=== PATIENT | male | born 1950 | race Caucasian/White ===

== ENCOUNTER 2018-01-21 17:24 | Emergency (ER) | payer MEDICAID ==
[~2018-01-21] VITALS: Ht 177.8 cm; Wt 78.0 kg
[2018-01-21] MEDS ORDERED: METF500T5 PO ×2 (17:38→17:40)
[2018-01-21] MEDS ORDERED: SERT100T PO (17:40)
[2018-01-21 22:44] VITALS: BP 122/64
== END 2018-01-21 23:16 | disposition home or self-care (01) ==
LOC: ED 23:00
DX: F10.120 Alcohol abuse with intoxication, uncomplicated (principal)
CPT/HCPCS: 99283

== ENCOUNTER 2018-01-25 16:47 | Emergency (ER) | payer MEDICARE, MEDICAID ==
[~2018-01-25] VITALS: Ht 167.6 cm; Wt 70.0 kg
[~2018-01-25 16:47] MED LIST: METF500T5 PO; SERT100T PO
[2018-01-25 18:02] LABS: BASOPHILS # (AUTO) 0.04 x10^3/uL (0-0.1); BASOPHILS % (AUTO) 0 % (0-1); EOSINOPHILS # (AUTO) 0.23 x10^3/uL (0-0.4); EOSINOPHILS % (AUTO) 3 % (1-7); LYMPHOCYTES # (AUTO) 1.96 x10^3/uL (1-3.4); LYMPHOCYTES % (AUTO) 21 % (22-44); MD NO; MEAN CORPUSCULAR HEMOGLOBIN 27.4 pg (27.5-34.5); MEAN CORPUSCULAR HGB CONC 33.3 g/dL (33.2-36.2); MEAN CORPUSCULAR VOLUME 82.3 fL (81-97); MEAN PLATELET VOLUME 10.1 fL (7.4-10.4); MONOCYTES # (AUTO) 0.43 x10^3/uL (0.2-0.8); MONOCYTES % (AUTO) 5 % (2-9); NEUTROPHILS # (AUTO) 6.54 x10^3/uL (1.8-6.8); NEUTROPHILS % (AUTO) 71 % (42-75); PLATELET COUNT 246 x10^3/uL (130-400); RED BLOOD COUNT 4.36 x10^6/uL (4.38-5.82); RED CELL DISTRIBUTION WIDTH 17.6 % (9.4-14.8)
[2018-01-25 18:08] LABS: ALANINE AMINOTRANSFERASE 35 U/L (12-78); ALBUMIN 3.7 g/dL (3.4-5.0); ANION GAP 12 mmol/L (5-15); CALCIUM 8.6 mg/dL (8.5-10.1); CHLORIDE 115 mmol/L (98-107); CREATININE 2.07 mg/dL (0.7-1.3)
[2018-01-25 18:10] LABS: ALKALINE PHOSPHATASE 100 U/L (45-117); BILIRUBIN,TOTAL 0.3 mg/dL (0.2-1.0); INTERNATIONAL NORMALIZED RATIO 1.02 (0.93-1.1); PROTHROMBIN TIME 10.6 Seconds (9.6-11.5); TOTAL PROTEIN 7.8 g/dL (6.4-8.2)
[2018-01-25 18:13] LABS: TROPONIN I < 0.015 ng/mL (0.000-0.045)
[2018-01-25 19:51] VITALS: BP 157/83
== END 2018-01-25 20:17 | disposition home or self-care (01) ==
LOC: ED 20:11
DX: N28.9 Disorder of kidney and ureter, unspecified (principal); F10.220 Alcohol dependence with intoxication, uncomplicated; E11.10 Type 2 diabetes mellitus with ketoacidosis without coma
CPT/HCPCS: 36415; 71045; 80053; 83605; 83690; 84484; 85025; 85610; 93005; 99285

== ENCOUNTER 2018-03-10 20:26 | Emergency (ER) | payer MEDICAID ==
[~2018-03-10] VITALS: Ht 177.8 cm; Wt 80.0 kg
[~2018-03-10 20:26] MED LIST changes: +METF500T17 PO; -METF500T5 PO
[2018-03-10 23:48] VITALS: BP 142/88
== END 2018-03-11 00:37 | disposition home or self-care (01) ==
LOC: ED 22:39
DX: F10.220 Alcohol dependence with intoxication, uncomplicated (principal); E11.9 Type 2 diabetes mellitus without complications
CPT/HCPCS: 99283

== ENCOUNTER 2018-05-02 16:19 | Emergency (ER) | payer MEDICAID, MEDICARE ==
[~2018-05-02] VITALS: Ht 177.8 cm; Wt 90.0 kg
[2018-05-02 16:59] LABS: BASOPHILS # (AUTO) 0.09 x10^3/uL (0-0.1); BASOPHILS % (AUTO) 1 % (0-1); EOSINOPHILS # (AUTO) 0.31 x10^3/uL (0-0.4); EOSINOPHILS % (AUTO) 2 % (1-7); LYMPHOCYTES # (AUTO) 2.88 x10^3/uL (1-3.4); LYMPHOCYTES % (AUTO) 22 % (22-44); MD NO; MEAN CORPUSCULAR HEMOGLOBIN 28.2 pg (27.5-34.5); MEAN CORPUSCULAR HGB CONC 33.6 g/dL (33.2-36.2); MEAN CORPUSCULAR VOLUME 83.8 fL (81-97); MEAN PLATELET VOLUME 10.4 fL (7.4-10.4); MONOCYTES # (AUTO) 0.88 x10^3/uL (0.2-0.8); MONOCYTES % (AUTO) 7 % (2-9); NEUTROPHILS # (AUTO) 9.21 x10^3/uL (1.8-6.8); NEUTROPHILS % (AUTO) 69 % (42-75); PLATELET COUNT 233 x10^3/uL (130-400); RED BLOOD COUNT 3.98 x10^6/uL (4.38-5.82); RED CELL DISTRIBUTION WIDTH 14.9 % (9.4-14.8)
[2018-05-02] MEDS ORDERED: SODIUM CHLORIDE FLUSH 10ML SYR IVF ONE (17:00)
[2018-05-02 17:12] LABS: ALANINE AMINOTRANSFERASE 36 U/L (12-78); ALBUMIN 3.6 g/dL (3.4-5.0); ANION GAP 13 mmol/L (5-15); CALCIUM 8.1 mg/dL (8.5-10.1); CHLORIDE 106 mmol/L (98-107); CREATININE 1.52 mg/dL (0.7-1.3)
[2018-05-02 17:14] LABS: ALKALINE PHOSPHATASE 110 U/L (45-117); BILIRUBIN,TOTAL 0.3 mg/dL (0.2-1.0); TOTAL PROTEIN 7.8 g/dL (6.4-8.2)
[2018-05-02] MEDS ORDERED: ONDANSETRON 2MG/ML, 2ML ONE (17:28)
[2018-05-02] MEDS ORDERED: ONDANSETRON 2MG/ML, 2ML IVPush ONE (17:30)
[2018-05-02] MEDS ORDERED: MAALOX/HYOSCYAMINE/LIDOCAINE 45 ML BTL PO ONE (19:00)
[2018-05-02] MEDS ORDERED: MAALOX/HYOSCYAMINE/LIDOCAINE 45 ML BTL ONE (19:12)
[2018-05-02 20:22] VITALS: BP 122/75
== END 2018-05-02 20:24 | disposition home or self-care (01) ==
LOC: ED 18:47
DX: F10.220 Alcohol dependence with intoxication, uncomplicated (principal); K29.20 Alcoholic gastritis without bleeding; Z13.9 Encounter for screening, unspecified; E11.9 Type 2 diabetes mellitus without complications
CPT/HCPCS: 36415; 80053; 80307; 83690; 85025; 96374; 99284; J2405

== ENCOUNTER 2018-07-24 23:33 | Emergency (ER) | payer MEDICAID, MEDICARE ==
[~2018-07-24] VITALS: Ht 177.8 cm; Wt 78.0 kg
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
[2018-07-25] MEDS ORDERED: IBUPROFEN 600 MG TABLET PO ONE
[2018-07-25] MEDS ORDERED: IBUPROFEN 200 MG TABLET ONE (00:06)
[2018-07-25] MEDS ORDERED: IBUPROFEN 600 MG TABLET ONE (00:09)
--- NOTE | 2018-07-25 00:10 | NUR ---
pt medicated per mar
[2018-07-25] MEDS ORDERED: GABA600T PO (00:14)
[2018-07-25] MEDS ORDERED: blood pressure (00:14)
--- NOTE | 2018-07-25 01:41 | NUR ---
PT RESTING WITH EYES CLOSED, NADN, EQUAL CHEST RISE/FALL OBSERVED, CALL LIGHT WITHIN REACH.
--- NOTE | 2018-07-25 01:41 | NUR ---
LATE ENTRY 0116- ATTEMPTED TO CALL [facility]ARBY INTERMEDIATE/FACILITIES WHERE PT WAS PICKED UP BY [facility], NOTIFIED THAT PT DOES NOT RESIDE AT ANY OF THESE FACILITIES. [facility] CALLED REGARDING MISSING PERSONS, NOTIFIED THAT THERE ARE NO REPORTS OF MISSING PERSON RELATED TO PT, ERP UPDATED.
--- NOTE | 2018-07-25 02:36 | NUR ---
PT RESTING CALMLY, DENIES NEEDS, NAD, CALL LIGHT WITHIN REACH.
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
--- NOTE | 2018-07-25 04:20 | NUR ---
PT RESTING CALMLY, PROVIDED PT WITH WARM BLANKET, NADN, CALL LIGHT WITHIN REACH
--- NOTE | 2018-07-25 05:43 | NUR ---
PT RESTING WITH EYES CLOSED, NADN, EQUAL CHEST RISE/FALL NOTED, CALL LIGHT WITHIN REACH
--- NOTE | 2018-07-25 07:07 | NUR ---
Recieved bedside report from JONAH Das. All questions answered. Assuming care of pt. Pt sleeping on gurney connected to all monitors. All safety measures in place. Pt has unlabored respirations equal bilaterally. Skin is pink, warm, and dry.
--- NOTE | 2018-07-25 07:08 | NUR ---
REPORT GIVEN TO JONAH SCOTT
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
--- NOTE | 2018-07-25 09:35 | NUR ---
Pt ambulates to restroom with personal cane stand by assistance. Pt provided breakfast tray and is appreciative. Pt states, "The house I live at is on [address] [facility] and it is down near a smoke shop and the [address]. It's a long term."
--- NOTE | 2018-07-25 10:13 | NUR ---
BS REPORT FROM SONIA MCKENZIE, ASSUME CARE OF PT AT THIS TIME. PT RESTING ON FREDRICK ANNE, AWAITING SW.
[2018-07-25 12:35] VITALS: BP 131/80
== END 2018-07-25 12:37 | disposition home or self-care (01) ==
LOC: ED 23:55
DX: S80.212A Abrasion, left knee, initial encounter (principal); S80.211A Abrasion, right knee, initial encounter; R53.1 Weakness; H54.8 Legal blindness, as defined in USA; E11.9 Type 2 diabetes mellitus without complications; F41.1 Generalized anxiety disorder; Z72.9 Problem related to lifestyle, unspecified; Z86.73 Personal history of transient ischemic attack (TIA), and cerebral infarction without residual deficits; W18.30XA Fall on same level, unspecified, initial encounter; Y93.89 Activity, other specified; Y92.89 Other specified places as the place of occurrence of the external cause; Y99.8 Other external cause status
CPT/HCPCS: 93005; 99283

== ENCOUNTER 2018-12-03 16:12 | Emergency (ER) | payer MEDICARE, MEDICAID ==
[~2018-12-03] VITALS: Ht 177.8 cm; Wt 86.0 kg
[~2018-12-03 16:12] MED LIST changes: +GABA600T PO; +blood pressure
--- NOTE | 2018-12-03 16:24 | NUR ---
Pt BIB EMS from [place] for trip and fall. Pt states he drank 2 beers today and fell walking home. Denies LOC, neck pain. Pt has abrasions to R forehead. BG by ems 131.
--- NOTE | 2018-12-03 16:47 | NUR ---
REPORT FROM JONAH PEREIRA. ASSISTED PATIENT TO BATHROOM, STAND-BY ASSIST. SLOW STEADY GAIT WITH CANE. PATIENT BACK TO BED, AWAITING CT, FREDRICKN.
--- NOTE | 2018-12-03 16:59 | NUR ---
PATIENT IN CT.
--- NOTE | 2018-12-03 17:34 | NUR ---
RESULTS BACK, CHART UP FOR RECHECK.
--- NOTE | 2018-12-03 18:02 | NUR ---
PATIENT AMB WITH SLOW STEADY GAIT TO BATHROOM WITH CANE. BACK TO BED. AARON.
--- NOTE | 2018-12-03 18:04 | NUR ---
PATIENT WANTING TO LEAVE, MD AWARE, AWAITING DC PAPERWORK.
[2018-12-03 18:16] VITALS: BP 135/68
--- NOTE | 2018-12-03 18:50 | NUR ---
Patient/Caregiver given discharge instructions and they have confirmed that they understand the instructions. Patient ambulatory with steady gait. Taxi voucher provided.
== END 2018-12-03 18:52 | disposition home or self-care (01) ==
LOC: ED 17:55
DX: S00.81XA Abrasion of other part of head, initial encounter (principal); F10.120 Alcohol abuse with intoxication, uncomplicated; E11.9 Type 2 diabetes mellitus without complications; F41.1 Generalized anxiety disorder; Z86.73 Personal history of transient ischemic attack (TIA), and cerebral infarction without residual deficits; Z72.9 Problem related to lifestyle, unspecified; W18.30XA Fall on same level, unspecified, initial encounter; Y93.89 Activity, other specified; Y92.410 Unspecified street and highway as the place of occurrence of the external cause; Y99.8 Other external cause status
CPT/HCPCS: 70450; 99284

== ENCOUNTER 2019-07-23 08:19 | Inpatient (IN) | payer MEDICARE, MEDICAID ==
[~2019-07-23] VITALS: Ht 177.8 cm; Wt 79.3 kg
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
--- NOTE | 2019-07-23 08:49 | NUR ---
BEDSIDE REPORT TO JONAH FARRELL.
[2019-07-23 08:59] LABS: BASOPHILS # (AUTO) 0.01 x10^3/uL (0-0.1); BASOPHILS % (AUTO) 0 % (0-1); EOSINOPHILS # (AUTO) 0.12 x10^3/uL (0-0.4); EOSINOPHILS % (AUTO) 1 % (1-7); LYMPHOCYTES # (AUTO) 0.88 x10^3/uL (1-3.4); LYMPHOCYTES % (AUTO) 7 % (22-44); MD NO; MEAN CORPUSCULAR HEMOGLOBIN 27.6 pg (27.5-34.5); MEAN CORPUSCULAR HGB CONC 32.8 g/dL (33.2-36.2); MEAN CORPUSCULAR VOLUME 84.2 fL (81-97); MEAN PLATELET VOLUME 10.9 fL (7.4-10.4); MONOCYTES # (AUTO) 0.47 x10^3/uL (0.2-0.8); MONOCYTES % (AUTO) 4 % (2-9); NEUTROPHILS % (AUTO) 89 % (42-75); PLATELET COUNT 200 x10^3/uL (130-400); RED BLOOD COUNT 4.21 x10^6/uL (4.38-5.82); RED CELL DISTRIBUTION WIDTH 15.5 % (9.4-14.8)
[2019-07-23 09:10] LABS: ALANINE AMINOTRANSFERASE 40 U/L (12-78); ALBUMIN 4.1 g/dL (3.4-5.0); ANION GAP 15 mmol/L (5-15); CALCIUM 9.2 mg/dL (8.5-10.1); CHLORIDE 112 mmol/L (98-107); CREATININE 2.88 mg/dL (0.7-1.3)
[2019-07-23 09:12] LABS: ALKALINE PHOSPHATASE 107 U/L (45-117); BILIRUBIN,TOTAL 0.6 mg/dL (0.2-1.0); TOTAL PROTEIN 8.2 g/dL (6.4-8.2)
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
--- NOTE | 2019-07-23 09:39 | NUR ---
DR SCHILLING IN ROOM. PLAN FOR ADMIT. PT AWARE AND AGREES.
[2019-07-23 09:53] LABS: SALICYLATE LEVEL 4.2 mg/dL (2.8-20.0)
[2019-07-23] MEDS ORDERED: SODIUM CHLORIDE 0.9% 1,000ML IVBOLUS ONE (10:00)
[2019-07-23] MEDS ORDERED: THIAMINE 100 MG in SODIUM CHLORIDE 0.9% 50 ML IVPB ONE (10:00)
--- NOTE | 2019-07-23 10:03 | NUR ---
piv est fluids infusing straigth cathed for urine. call [facility] in reach. as
[2019-07-23 10:14] LABS: MICROSCOPIC INDICATED
[2019-07-23 10:20] LABS: AMPHETAMINE SCREEN, URINE Positive (Negative); BARBITURATE SCREEN, URINE Negative (Negative); BENZODIAZEPINE SCREEN, URINE Negative (Negative); CANNABINOID SCREEN, URINE Negative (Negative); COCAINE SCREEN, URINE Negative (Negative); METHADONE SCREEN, URINE Negative (Negative); OPIATE SCREEN, URINE Negative (Negative)
[2019-07-23 10:22] LABS: CULTURE INDICATED? NO
[2019-07-23] MEDS: SODIUM CHLORIDE 0.9% 1,000 ML IV SCH ×2 (10:23→21:18)
--- NOTE | 2019-07-23 10:34 | NUR ---
med rec done, pt not sure of his meds. sts took sertraline today. as
--- NOTE | 2019-07-23 10:51 | NUR ---
report to cody haney. as
[2019-07-23] MEDS: ENOXAPARIN 30 MG/0.3 ML SQ SCH (10:56)
[2019-07-23 11:11] VITALS: BP 134/67
[2019-07-23 13:02] VITALS: BP 133/70
[2019-07-23 21:11] VITALS: BP 130/72
[2019-07-23] MEDS ORDERED: LORazepam 1MG TABLET ONE (21:17)
[2019-07-23] MEDS: LORazepam 1MG TABLET PO PRN (21:18)
[2019-07-24 01:05] VITALS: BP 117/68
[2019-07-24 06:50] VITALS: BP 102/59
[2019-07-24 08:35] LABS: MEAN CORPUSCULAR HEMOGLOBIN 27.5 pg (27.5-34.5); MEAN CORPUSCULAR HGB CONC 32.5 g/dL (33.2-36.2); MEAN CORPUSCULAR VOLUME 84.8 fL (81-97); MEAN PLATELET VOLUME 10.5 fL (7.4-10.4); PLATELET COUNT 182 x10^3/uL (130-400); RED BLOOD COUNT 4.02 x10^6/uL (4.38-5.82); RED CELL DISTRIBUTION WIDTH 16.5 % (9.4-14.8)
[2019-07-24 08:41] LABS: ANION GAP 9 mmol/L (5-15); CALCIUM 8.3 mg/dL (8.5-10.1); CHLORIDE 115 mmol/L (98-107)
[2019-07-24 08:45] LABS: ALANINE AMINOTRANSFERASE 41 U/L (12-78); ALBUMIN 3.1 g/dL (3.4-5.0); ALKALINE PHOSPHATASE 83 U/L (45-117); BILIRUBIN,TOTAL 0.6 mg/dL (0.2-1.0); CREATININE 1.92 mg/dL (0.7-1.3); TOTAL PROTEIN 6.7 g/dL (6.4-8.2)
[2019-07-24 08:56] LABS: BASOPHILS # (AUTO) 0.04 x10^3/uL (0-0.1); BASOPHILS % (AUTO) 0 % (0-1); EOSINOPHILS # (AUTO) 0.29 x10^3/uL (0-0.4); EOSINOPHILS % (AUTO) 3 % (1-7); LYMPHOCYTES # (AUTO) 2.13 x10^3/uL (1-3.4); LYMPHOCYTES % (AUTO) 22 % (22-44); MD SCAN; MONOCYTES % (AUTO) 8 % (2-9); NEUTROPHILS # (AUTO) 6.48 x10^3/uL (1.8-6.8); NEUTROPHILS % (AUTO) 67 % (42-75)
[2019-07-24] MEDS: ENOXAPARIN 30 MG/0.3 ML SQ SCH (10:40)
[2019-07-24] MEDS: SERTRALINE 100MG TABLET PO SCH (10:40)
[2019-07-24] MEDS: SODIUM CHLORIDE 0.9% 1,000 ML IV SCH ×2 (10:40→19:00)
[2019-07-24 12:47] VITALS: BP 117/65
[2019-07-24 19:42] VITALS: BP 135/75
[2019-07-24] MEDS: ACETAMINOPHEN 325 MG TABLET PO PRN (20:36)
[2019-07-24] MEDS: LORazepam 1MG TABLET PO PRN (20:36)
[2019-07-25 02:16] VITALS: BP 134/64
[2019-07-25] MEDS: ACETAMINOPHEN 325 MG TABLET PO PRN ×3 (02:20→23:22)
[2019-07-25] MEDS: SODIUM CHLORIDE 0.9% 1,000 ML IV SCH ×2 (02:20→11:18)
[2019-07-25 05:13] LABS: BASOPHILS # (AUTO) 0.05 x10^3/uL (0-0.1); BASOPHILS % (AUTO) 1 % (0-1); EOSINOPHILS # (AUTO) 0.31 x10^3/uL (0-0.4); EOSINOPHILS % (AUTO) 4 % (1-7); LYMPHOCYTES # (AUTO) 1.92 x10^3/uL (1-3.4); LYMPHOCYTES % (AUTO) 25 % (22-44); MD NO; MEAN CORPUSCULAR HEMOGLOBIN 27.6 pg (27.5-34.5); MEAN CORPUSCULAR HGB CONC 32.6 g/dL (33.2-36.2); MEAN CORPUSCULAR VOLUME 84.5 fL (81-97); MEAN PLATELET VOLUME 10.3 fL (7.4-10.4); MONOCYTES # (AUTO) 0.52 x10^3/uL (0.2-0.8); MONOCYTES % (AUTO) 7 % (2-9); NEUTROPHILS # (AUTO) 4.84 x10^3/uL (1.8-6.8); NEUTROPHILS % (AUTO) 63 % (42-75); PLATELET COUNT 168 x10^3/uL (130-400); RED BLOOD COUNT 3.84 x10^6/uL (4.38-5.82); RED CELL DISTRIBUTION WIDTH 16.5 % (9.4-14.8)
[2019-07-25 05:22] LABS: ANION GAP 8 mmol/L (5-15); CHLORIDE 116 mmol/L (98-107); CREATININE 1.52 mg/dL (0.7-1.3)
[2019-07-25 06:45] VITALS: BP 117/62
[2019-07-25] MEDS: ENOXAPARIN 40 MG/0.4 ML SQ SCH (09:16)
[2019-07-25] MEDS: SERTRALINE 100MG TABLET PO SCH (09:16)
[2019-07-25 12:44] VITALS: BP 121/63
[2019-07-25] MEDS: LACTATED RINGERS 1,000 ML IV SCH ×2 (14:49→23:25)
[2019-07-25 15:28] VITALS: BP 130/64
[2019-07-25] MEDS: LORazepam 1MG TABLET PO PRN (18:46)
[2019-07-25 19:21] VITALS: BP 146/67
[2019-07-26 02:06] VITALS: BP 147/72
[2019-07-26 07:35] VITALS: BP 143/86
[2019-07-26] MEDS: SERTRALINE 100MG TABLET PO SCH (07:41)
[2019-07-26] MEDS: LACTATED RINGERS 1,000 ML IV SCH ×2 (07:42→18:02)
[2019-07-26 08:52] LABS: ANION GAP 7 mmol/L (5-15); CALCIUM 8.2 mg/dL (8.5-10.1); CHLORIDE 115 mmol/L (98-107)
[2019-07-26 08:54] LABS: CREATININE 1.35 mg/dL (0.7-1.3)
[2019-07-26] MEDS: ENOXAPARIN 40 MG/0.4 ML SQ SCH (10:51)
[2019-07-26] MEDS ORDERED: CALCIUM CARBONATE 500 MG TAB.CHEW ONE (10:53)
[2019-07-26] MEDS ORDERED: CALCIUM CARBONATE 500 MG TAB.CHEW PO PRN (11:00)
[2019-07-26 13:45] VITALS: BP 153/75
[2019-07-26] MEDS ORDERED: FLU VACC QS2019-20 36MOS UP/PF 0.5 ML IM-VACC ONE (16:00)
[2019-07-26] MEDS: POTASSIUM CHLORIDE 20 MEQ TAB.ER.PRT PO SCH (16:25)
[2019-07-26 18:55] VITALS: BP 152/70
[2019-07-26] MEDS: TRAZODONE 50MG TABLET PO PRN (22:05)
[2019-07-27 00:59] VITALS: BP 136/82
[2019-07-27] MEDS: LACTATED RINGERS 1,000 ML IV SCH ×3 (02:59→22:54)
[2019-07-27 05:22] LABS: ANION GAP 5 mmol/L (5-15); CALCIUM 8.5 mg/dL (8.5-10.1); CHLORIDE 113 mmol/L (98-107)
[2019-07-27 07:10] VITALS: BP 139/61
[2019-07-27] MEDS: SERTRALINE 100MG TABLET PO SCH (09:12)
[2019-07-27] MEDS: POTASSIUM CHLORIDE 20 MEQ TAB.ER.PRT PO SCH (09:13)
[2019-07-27] MEDS: ENOXAPARIN 40 MG/0.4 ML SQ SCH (10:48)
[2019-07-27 11:45] LABS: FREE T4 (FREE THYROXINE) 1.06 ng/dL (0.76-1.46)
[2019-07-27 13:51] VITALS: BP 119/57
[2019-07-27 18:51] VITALS: BP 150/85
[2019-07-27] MEDS: TRAZODONE 50MG TABLET PO PRN (22:53)
[2019-07-28 01:15] VITALS: BP 144/75
[2019-07-28] MEDS: LACTATED RINGERS 1,000 ML IV SCH ×2 (09:24→19:15)
[2019-07-28] MEDS: ENOXAPARIN 40 MG/0.4 ML SQ SCH (09:24)
[2019-07-28] MEDS: SERTRALINE 100MG TABLET PO SCH (09:24)
[2019-07-28 09:47] VITALS: BP 136/67
[2019-07-28 15:07] VITALS: BP 146/77
[2019-07-28 18:31] VITALS: BP 153/88
[2019-07-28] MEDS: TRAZODONE 50MG TABLET PO PRN (22:08)
[2019-07-29 01:08] VITALS: BP 153/89
[2019-07-29] MEDS: LACTATED RINGERS 1,000 ML IV SCH ×2 (05:04→15:49)
[2019-07-29 07:09] VITALS: BP 146/70
[2019-07-29] MEDS: ENOXAPARIN 40 MG/0.4 ML SQ SCH (09:29)
[2019-07-29] MEDS: SERTRALINE 100MG TABLET PO SCH (09:29)
[2019-07-29 12:49] VITALS: BP 156/89
[2019-07-29 19:00] VITALS: BP 149/69
[2019-07-29] MEDS ORDERED: MELATONIN 3 MG TABLET PO SCH (21:00)
[2019-07-30] MEDS: LACTATED RINGERS 1,000 ML IV SCH ×2 (00:55→11:00)
[2019-07-30 01:40] VITALS: BP 147/67
[2019-07-30 06:57] VITALS: BP 149/73
[2019-07-30] MEDS: SERTRALINE 100MG TABLET PO SCH (08:59)
[2019-07-30] MEDS: ENOXAPARIN 40 MG/0.4 ML SQ SCH (08:59)
== END 2019-07-30 13:57 | DRG 917 ==
LOC: ED 09:45 → EDIP 10:10 → 4NE 11:02 → 3N 07-25 14:43
PROVIDERS: ADMIT Internal Medicine Infectious Disease; ATTEND Internal Medicine Infectious Disease
DX: T43.621A Poisoning by amphetamines, accidental (unintentional), initial encounter (principal); N17.0 Acute kidney failure with tubular necrosis; G92 Toxic encephalopathy; E87.2 Acidosis; D68.69 Other thrombophilia; E11.22 Type 2 diabetes mellitus with diabetic chronic kidney disease; E11.649 Type 2 diabetes mellitus with hypoglycemia without coma; E86.0 Dehydration; H54.8 Legal blindness, as defined in USA; I48.91 Unspecified atrial fibrillation; N18.3 Chronic kidney disease, stage 3 (moderate); Z86.73 Personal history of transient ischemic attack (TIA), and cerebral infarction without residual deficits; Z91.81 History of falling; S50.812A Abrasion of left forearm, initial encounter; S50.811A Abrasion of right forearm, initial encounter; W18.39XA Other fall on same level, initial encounter; Y93.89 Activity, other specified; Y92.89 Other specified places as the place of occurrence of the external cause; Y99.8 Other external cause status; F15.180 Other stimulant abuse with stimulant-induced anxiety disorder
CPT/HCPCS: 36415; 70450; 71045; 76770; 80048; 80053; 80307; 81001; 82140; 82570; 83036; 84300; 84439; 84443; 85025; 90686; 93005; 96374; G0378; J1650; J3411; 92523-GN; J7030; J7120

== ENCOUNTER 2020-12-25 13:58 | Emergency (ER) | payer MEDICARE, MEDICAID ==
[~2020-12-25] VITALS: Ht 177.8 cm; Wt 79.0 kg
[~2020-12-25 13:58] MED LIST changes: +AMLO-150 PO; +GABA300C PO; +HYDR-2214 PO; +LISI5TAB7 PO; +POLY17PO5 PO; +PRED10TA PO; +SENN-211 PO
[2020-12-25] MEDS ORDERED: OXYcodone/APAP 5/325MG TABLET PO ONE (15:30)
[2020-12-25] MEDS ORDERED: METHOCARBAMOL 750 MG TABLET PO ONE (15:30)
[2020-12-25] MEDS ORDERED: OXYcodone/APAP 5/325MG TABLET ONE (15:33)
[2020-12-25] MEDS ORDERED: METHOCARBAMOL 750 MG TABLET ONE (15:33)
[2020-12-25] MEDS ORDERED: DIAZEPAM 5 MG TABLET ONE (16:16)
[2020-12-25] MEDS ORDERED: DIAZEPAM 5 MG TABLET PO ONE (16:30)
[2020-12-25 17:14] VITALS: BP 176/93
== END 2020-12-25 17:27 | disposition home or self-care (01) ==
LOC: ED 14:28
DX: M48.061 Spinal stenosis, lumbar region without neurogenic claudication (principal); I10 Essential (primary) hypertension
CPT/HCPCS: 99284; J7512

== ENCOUNTER 2020-12-28 15:01 | Emergency (ER) | payer MEDICARE, MEDICAID ==
[~2020-12-28] VITALS: Ht 177.8 cm; Wt 79.1 kg
--- NOTE | 2020-12-28 15:49 | NUR ---
PT PRESENTS TO ED WITH C/O BLE PAIN AND CONSTIPATION. SEEN HERE FOR BLE PAIN DAYS AGO, CAN'T GET F/U APPOINTMENT UNTIL 01/10. PT STATES NO BM SINCE LAST WEEK. PT A&O, RESPS EVEN AND UNLABORED, VSS, NADN.
--- NOTE | 2020-12-28 16:21 | NUR ---
talya Rivera at bedside for initial assessment and eval
[2020-12-28] MEDS ORDERED: KETOROLAC 30 MG/1 ML ONE (16:32)
--- NOTE | 2020-12-28 16:34 | NUR ---
PT TO XR
--- NOTE | 2020-12-28 16:50 | NUR ---
PT BACK FROM XTR
--- NOTE | 2020-12-28 16:58 | NUR ---
PT MEDICATED PER ORDER, TOLERATED WELL. RESTIGN IN BED, A&O, RESPS EVEN AND UNLABORED, VSS, NADN.
[2020-12-28] MEDS ORDERED: KETOROLAC 30 MG/1 ML IM ONE (17:00)
[2020-12-28] MEDS ORDERED: MAGNESIUM CITRATE 300ML ORAL SOL ONE (17:25)
[2020-12-28] MEDS ORDERED: METHYLNALTREXONE 12 MG/0.6 ML SYR SQ ONE ×2 (17:25→18:00)
[2020-12-28 17:45] VITALS: BP 127/62
[2020-12-28] MEDS ORDERED: MAGNESIUM CITRATE 300ML ORAL SOL PO ONE (18:00)
--- NOTE | 2020-12-28 18:46 | NUR ---
BEDSIDE REPORT GIVEN TO FLORES MCKENZIE
--- NOTE | 2020-12-28 19:38 | NUR ---
PT AMB TO RESTROOM STEADY GAIT NO ASSIST REQUIRED. PT BACK TO BED STS WANTS TO GO.
--- NOTE | 2020-12-28 20:00 | NUR ---
TASK RN TO ASSIST WITH DC STS PT UNCOOPERATIVE WITH DC AND REFUSING TO LEAVE
--- NOTE | 2020-12-28 20:10 | NUR ---
PT PROVIDED TAXI VOUCHER TO ADDRESS PROVIDED AND INSTRUCTED TO FOLLOW UP WITH PRIMARY PROVIDER FOR CONTINUITY OF CARE.
--- NOTE | 2020-12-28 20:14 | NUR ---
Patient/Caregiver given discharge instructions and they have confirmed that they understand the instructions. Patient ambulatory with steady gait. NAD, all questions answered appropriately, denies additional needs at this time. No personal belongings left in room after discharge.
== END 2020-12-28 20:17 | disposition home or self-care (01) ==
LOC: ED 15:24
DX: K59.00 Constipation, unspecified (principal); M54.42 Lumbago with sciatica, left side; E11.9 Type 2 diabetes mellitus without complications; Z86.73 Personal history of transient ischemic attack (TIA), and cerebral infarction without residual deficits
CPT/HCPCS: 74018; 96372; 99284; J1885

== ENCOUNTER 2021-01-03 19:25 | Emergency (ER) | payer MEDICARE, MEDICAID ==
[~2021-01-03] VITALS: Ht 177.8 cm; Wt 79.8 kg
[2021-01-03 19:32] VITALS: BP 147/81
[2021-01-03] MEDS ORDERED: HYDROcodone/APAP 5/325 TABLET PO ONE (23:00)
[2021-01-03] MEDS ORDERED: IBUPROFEN 600 MG TABLET PO ONE (23:00)
[2021-01-03] MEDS ORDERED: IBUPROFEN 600 MG TABLET ONE (23:13)
[2021-01-03] MEDS ORDERED: HYDROcodone/APAP 5/325 TABLET ONE (23:14)
--- NOTE | 2021-01-03 23:22 | NUR ---
PT MEDICATED AND F/U AND D/C INSTRUCTIONS GIVEN TO PT AND HE V/U. BUS PASS PROVIDED TO PT.
== END 2021-01-03 23:24 | disposition home or self-care (01) ==
LOC: ED 21:00
DX: M79.662 Pain in left lower leg (principal); G89.29 Other chronic pain; Z72.9 Problem related to lifestyle, unspecified; E11.9 Type 2 diabetes mellitus without complications; Z86.73 Personal history of transient ischemic attack (TIA), and cerebral infarction without residual deficits
CPT/HCPCS: 99283

== ENCOUNTER 2021-01-12 10:58 | Emergency (ER) | payer MEDICARE, MEDICAID ==
[~2021-01-12] VITALS: Ht 177.8 cm; Wt 80.0 kg
--- NOTE | 2021-01-12 11:10 | NUR ---
PT BIB EMS FOR BILAT LEG WEAKNESS. DENIES CP OR SOB. PT STATES HIS LEGS ARE TINGLY, ITCHY AND "JUST DONT WORK". RECENT STAY AT [id number]. PT POOR HISTORIAN. WAS SOMETHING FOR HIS HEART. BS EMS 150, AFIB. NOT A BLOOD THINNER. HX OF [facility]
[2021-01-12] MEDS ORDERED: ASPIRIN 81 MG TABLET CHEW PO ONE (11:30)
[2021-01-12 11:49] LABS: BASOPHILS % (AUTO) 1 % (0-1); EOSINOPHILS % (AUTO) 3 % (1-7); LYMPHOCYTES % (AUTO) 22 % (22-44); MEAN CORPUSCULAR HEMOGLOBIN 28.9 pg (27.5-34.5); MEAN CORPUSCULAR HGB CONC 33.7 g/dL (33.2-36.2); MEAN PLATELET VOLUME 9.4 fL (7.4-10.4); MONOCYTES % (AUTO) 6 % (2-9); NEUTROPHILS % (AUTO) 68 % (42-75); PLATELET COUNT 195 x10^3/uL (130-400); RED BLOOD COUNT 4.62 x10^6/uL (4.38-5.82); RED CELL DISTRIBUTION WIDTH 14.5 % (9.4-14.8)
[2021-01-12 11:56] LABS: ALANINE AMINOTRANSFERASE 46 U/L (12-78); ALBUMIN 3.9 g/dL (3.4-5.0); CALCIUM 9.5 mg/dL (8.5-10.1); CREATININE 1.46 mg/dL (0.7-1.3)
[2021-01-12 12:01] LABS: ALKALINE PHOSPHATASE 90 U/L (45-117); BILIRUBIN,TOTAL 0.4 mg/dL (0.2-1.0); TOTAL PROTEIN 7.8 g/dL (6.4-8.2); TROPONIN I < 0.015 ng/mL (0.000-0.045)
[2021-01-12 12:05] LABS: ANION GAP 5 mmol/L (5-15); CHLORIDE 111 mmol/L (98-107)
--- NOTE | 2021-01-12 14:27 | NUR ---
PT AMBULATED TO BATHROOM. GIVEN SPRITE. WAITING ON RECORDS FROM [facility]
[2021-01-12] MEDS ORDERED: RIVAROXABAN 20 MG TABLET PO ONE (15:00)
--- NOTE | 2021-01-12 15:00 | NUR ---
MEDICATD Gabriel BROWN
[2021-01-12] MEDS ORDERED: RIVAROXABAN 20 MG TABLET ONE (15:08)
--- NOTE | 2021-01-12 15:29 | NUR ---
Patient given discharge instructions and they have confirmed that they understand the instructions. Patient ambulatory with steady gait.
[2021-01-12 15:30] VITALS: BP 152/61
== END 2021-01-12 15:30 ==
LOC: ED 12:38
DX: R06.00 Dyspnea, unspecified (principal); R06.02 Shortness of breath; R53.1 Weakness; Z86.711 Personal history of pulmonary embolism; E11.40 Type 2 diabetes mellitus with diabetic neuropathy, unspecified; Z86.73 Personal history of transient ischemic attack (TIA), and cerebral infarction without residual deficits
CPT/HCPCS: 36415; 71045; 80053; 83880; 84484; 85025; 93005; 99285

== ENCOUNTER 2021-02-19 12:31 | Emergency (ER) | payer MEDICARE, MEDICAID ==
[~2021-02-19] VITALS: Ht 177.8 cm; Wt 78.0 kg
[2021-02-19 12:33] VITALS: BP 109/61
--- NOTE | 2021-02-19 12:48 | NUR ---
RN WHEELED PT TO ROOM AND HELPED PT GET UNDRESSED FOR ASSESSMENT.
== END 2021-02-19 13:30 | disposition home or self-care (01) ==
LOC: ED 12:33
DX: L03.115 Cellulitis of right lower limb (principal); B86 Scabies; G89.29 Other chronic pain; E11.9 Type 2 diabetes mellitus without complications; Z86.73 Personal history of transient ischemic attack (TIA), and cerebral infarction without residual deficits
CPT/HCPCS: 99283